=== PATIENT | female | born 1990 | race Caucasian/White ===

== ENCOUNTER 2016-10-27 07:55 | Emergency (ER) | payer OTHER ==
[2016-10-27 08:11] VITALS: BP 80/55
--- NOTE | 2016-10-27 08:53 | UC ---
Shoulder Pain HPI - HPI Summary HPI Summary: The patient comes in today for: 1. Shoulder pain: Onset: One week ago--getting worse. Palliative/provocative: Movement makes it worse. Quality: [place]: Right shoulder. Severity: 610 Time: Constant. Associated symptoms: Previous treatment: She went to an urgent care center in [place], [place] and evaluated there. She had an x-ray there. This study was "nothing wrong." She was told to take ibuprofen. She was taking ibuprofen at 600 mg, 4x/day. She has been doing this for 2 days. She states that she is also taking Percocet (5/ 325) 3xday. 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 * - History of Current Complaint Chief Complaint: UCUpperExtremity Stated Complaint: RIGHT SHOULDER PAIN Time Seen by Provider: 10/27/16 08:43 Hx Obtained From: Patient, Family/Museum Technician Hx Last Menstrual Period: 10/12/16 - Allergies/Home Medications Allergies/Adverse Reactions: Allergies Allergy/AdvReac Type Severity Reaction Status Date / Time No Known Allergies Allergy Verified 10/27/16 08:11 Home Medications: Home Medications oxyCODONE/Acetamin 5/325 MG* [Percocet 5/325 TAB*] 1 tab PO Q4H PRN 10/27/16 [ History Confirmed 10/27/16] PMH/Surg Hx/FS Hx/Imm Hx Previously Healthy: No - Allergies, "Myositosis." Endocrine History: Thyroid Disease Respiratory History: Asthma - Surgical History Surgical History: None Surgery Procedure, Year, and Place: muscle bx right leg about 6 months ago. abscess right breast - Family History Known Family History: Positive: Hypertension Negative: Cardiac Disease - Social History Occupation: Unemployed Alcohol Use: None Substance Use Type: None Smoking Status (MU): Heavy Every Day Tobacco Smoker Type: Cigarettes Amount Used/How Often: 1/2ppd Length of Time of Smoking/Using Tobacco: started at age 14 Have You Smoked in the Last Year: Yes Household Exposure Type: Cigarettes Review of Systems Constitutional: Negative Skin: Negative Eyes: Negative ENT: Negative Respiratory: Negative Cardiovascular: Negative Gastrointestinal: Negative Genitourinary: Negative Musculoskeletal: Arthralgia All Other Systems Reviewed And Are Negative: Yes Physical Exam Triage Information Reviewed: Yes Appearance: Well-Appearing, No Pain Distress - sitting. Vital Signs: Initial Vital Signs Temp 97.6 F 10/27/16 08:00 Pulse 74 10/27/16 08:00 Resp 16 10/27/16 08:00 BP 80/55 10/27/16 08:00 Pulse Ox 97 10/27/16 08:00 Vital Signs Reviewed: Yes Eyes: Positive: Conjunctiva Clear. Negative: Discharge ENT: Positive: Hearing grossly normal. Negative: Pharyngeal erythema, Nasal congestion, Nasal drainage, TM bulging, TM dull, TM red, Tonsillar swelling, Tonsillar exudate Dental: Negative: Gross Decay/Caries @, Dental Fracture @ Neck: Positive: Supple, Nontender, No Lymphadenopathy. Negative: Nuchal Rigidity Respiratory: Positive: Chest non-tender, Lungs clear, No respiratory distress, No accessory muscle use. Negative: Rhonchi, Wheezing Cardiovascular: Positive: RRR, No Murmur Abdomen Description: Positive: Nontender, No Organomegaly, Soft. Negative: Distended, Guarding Musculoskeletal: Positive: Strength Intact, ROM Intact, Other: - Right shoulder : No ecchymosis, no swelling. There is tenderness (slight) to palpation of the coracoid process, and biceps tendon. She had good passive abduction of to 90 degrees. She had marked tenderness to palpation of the musculature of the medial border of the scapula and along the superior border of the scapula. She also had marked tenderness to palpation of the right lateral neck. Neurological: Positive: Alert, Muscle Tone Normal Psychological: Positive: Normal Response To Family, Age Appropriate Behavior Skin: Negative: rashes, breakdown Diagnostics - Radiology No standard instances Xray Interpretation: No Acute Changes Radiology Interpretation Completed By: Radiologist Shoulder Course/Dx - Course Course Of Treatment: Patient told of the negative shoulder x-ray report and her treatment options. At this time, she will be treated with a prednisone burst and muscle relaxant. - Differential Dx/Diagnosis Differential Diagnosis/HQI/PQRI: Sprain, Strain Provider Diagnoses: Right shoulder pain, (muscular). Discharge - Discharge Plan Condition: Stable Disposition: HOME Patient Education Materials: Shoulder Pain (ED) Referrals: Alcides MUNGUIA,Wilmar Wolfe [Primary Care Provider] - 1 Week (Please see your primary care provider in about one to two weeks to see how well you are doing. If you get worse, please be seen sooner.)
--- NOTE | 2016-10-27 09:39 | RAD ---
HISTORY: Right shoulder pain COMPARISONS: None VIEWS: 4, Frontal internal rotation, external rotation, outlet, and axillary views of the right shoulder FINDINGS: BONE DENSITY: Normal. BONES: There is no displaced fracture. JOINTS: There is no arthropathy. ALIGNMENT: There is no dislocation. SOFT TISSUES: Unremarkable. OTHER FINDINGS: None. IMPRESSION: NO ACUTE OSSEOUS INJURY. IF SYMPTOMS PERSIST, RECOMMEND REPEAT IMAGING.
== END 2016-10-27 10:07 | disposition home or self-care (01) ==
LOC: UCCORT 07:55
DX: M25.511 Pain in right shoulder (principal)
CPT/HCPCS: 99212; G0463

== ENCOUNTER 2017-01-19 19:12 | Emergency (ER) | payer OTHER ==
[2017-01-19 19:55] VITALS: BP 89/60
--- NOTE | 2017-01-19 20:26 | UC ---
Complaint Female HPI - HPI Summary HPI Summary: 26 yo female stared her period about 5 days was normal initially] now with marked increase in vaginal bleeding passing clots has used 15 -20 tampons today states her BP is usually 80-90 systolic and this is confirmed by reviewing old charts states she is anemic but has never needed a transfusion states she has some mild dizziness with standing but this is chronic and not worse than normal NO pelvic pain last PAP 1-2 yrs and was normal despite meloxicam allergy states she take ibuprofen without problems - History Of Current Complaint Chief Complaint: UCGeneralIllness Stated Complaint: PERSONAL Time Seen by Provider: 01/19/17 19:36 Hx Obtained From: Patient Hx Last Menstrual Period: 01/11/17 Onset/Duration: Gradual Onset, Lasting Hours Timing: Constant Severity Initially: Moderate Severity Currently: Moderate Pain Intensity: 0 Pain Scale Used: 0-10 Numeric Character: Not Applicable Aggravating Factor(s): Nothing Alleviating Factor(s): Nothing Associated Signs And Symptoms: Positive: Vaginal Bleeding/Discharge - Allergies/Home Medications Allergies/Adverse Reactions: Allergies Allergy/AdvReac Type Severity Reaction Status Date / Time Meloxicam Allergy Severe throat Verified 01/19/17 19:24 swelling PMH/Surg Hx/FS Hx/Imm Hx Previously Healthy: Yes - Surgical History Surgical History: Yes Surgery Procedure, Year, and Place: muscle bx right leg about 6 months ago. abscess right breast - Family History Known Family History: Positive: Hypertension Negative: Cardiac Disease - Social History Alcohol Use: None Substance Use Type: None Smoking Status (MU): Heavy Every Day Tobacco Smoker Type: Cigarettes Amount Used/How Often: 1/2ppd Length of Time of Smoking/Using Tobacco: started at age 14 Have You Smoked in the Last Year: Yes Household Exposure Type: Cigarettes Review of Systems Constitutional: Negative Skin: Negative Eyes: Negative ENT: Negative Respiratory: Negative Cardiovascular: Negative Gastrointestinal: Negative Genitourinary: Negative Motor: Negative Neurovascular: Negative Musculoskeletal: Negative Neurological: Negative Psychological: Negative All Other Systems Reviewed And Are Negative: Yes Physical Exam Triage Information Reviewed: Yes Appearance: Well-Appearing, No Pain Distress, Well-Nourished Vital Signs: Initial Vital Signs Temp 97.8 F 01/19/17 19:17 Pulse 79 01/19/17 19:17 Resp 17 01/19/17 19:17 BP 87/54 01/19/17 19:17 Pulse Ox 99 08/30/17 19:17 Eyes: Positive: Conjunctiva Clear ENT: Positive: Hearing grossly normal, Pharynx normal, TMs normal. Negative: Tonsillar exudate, Trismus, Muffled/hoarse voice Neck: Positive: Supple, Nontender, No Lymphadenopathy Respiratory: Positive: Lungs clear, Normal breath sounds, No respiratory distress Cardiovascular: Positive: RRR, No Murmur, Pulses Normal Abdomen Description: Positive: Nontender, No Organomegaly, Soft, Other: - ext genitalia- no lesions, scant blood in vagina, no cervical lesions notes, non tender uterus and adenexa Musculoskeletal: Positive: ROM Intact, No Edema Neurological: Positive: Alert Psychological Exam: Normal Complaint Female Dx - Differential Dx/Diagnosis Provider Diagnoses: heavy vaginal bleeding of uncertain cause Discharge - Discharge Plan Condition: Stable Disposition: HOME Patient Education Materials: Dysfunctional Uterine Bleeding (ED) Referrals: Alcides MUNGUIA,Wilmar Wolfe [Primary Care Provider] - Additional Instructions: blood work is pending I am unsure of the cause of your bleeding on exam you had on scantly bleeding ...that may change if things worsen go to the ER you should try to get in to see your MD or RETOUCHER in 1-2 days
[2017-01-20 10:24] LABS: Hematocrit 34 % (35-47); Hemoglobin 11.2 g/dl (12.0-16.0); Mean Corpuscular HGB Conc 33 g/dl (31-36); Mean Corpuscular Hemoglobin 28 pg (27-31); Mean Corpuscular Volume 87 fL (80-97); Mean Platelet Volume 8 um3 (7.4-10.4); Red Blood Count 3.96 10^6/ul (4.0-5.4); Red Cell Distribution Width 18 % (10.5-15); White Blood Count 7.5 10^3/ul (3.5-10.8)
--- NOTE | 2017-01-21 09:48 | ED ---
Progress - Progress Note Progress Note: CALL PATIENT CBC (-), INR NORMAL, EMERSON/GARDNERELLA(-). IF WORSE F/U PCP/ER. Course/Dx - Diagnoses Provider Diagnoses: Bleeding
== END 2017-01-19 20:55 | disposition home or self-care (01) ==
LOC: UCCORT 19:12
DX: N92.0 Excessive and frequent menstruation with regular cycle (principal); Z32.02 Encounter for pregnancy test, result negative; Z72.0 Tobacco use
CPT/HCPCS: 36415; 81003; 84702; 85025; 85610; 87480; 87491; 87510; 87591; 87661; 99212; G0463

== ENCOUNTER 2019-04-20 20:57 | Emergency (ER) | payer OTHER ==
[2019-04-20 21:13] VITALS: BP 106/73
[2019-04-20] MEDS ORDERED: Ibuprofen TAB* 600 MG PO ONE (21:25)
--- NOTE | 2019-04-20 21:31 | UC ---
Upper Extremity HPI - HPI Summary HPI Summary: Pt states she had carpal tunnel surgery 04/12/19 and has had pain that goes all the way up the arm, fingers are numb, and something just does not feel right. - History of Current Complaint Chief Complaint: UCUpperExtremity Stated Complaint: LEFT HAND/ARM PAIN AFTER SURGERY Hx Obtained From: Patient Hx Last Menstrual Period: novasure ?: No Onset/Duration: Sudden Onset, Lasting Weeks Severity Initially: Severe Severity Currently: Severe Pain Intensity: 10 Aggravating Factor(s): Movement Associated Signs And Symptoms: Positive: Swelling, Bruising - Allergies/Home Medications Allergies/Adverse Reactions: Allergies Allergy/AdvReac Type Severity Reaction Status Date / Time meloxicam Allergy Severe throat Verified 04/20/19 21:14 swelling tramadol Allergy Severe throat Verified 04/20/19 21:14 swelling Home Medications: Home Medications Budesonide/Formote 80/4.5(NF) [Symbicort 80/4.5 (NF)] 2 inh PO DAILY 04/20/19 [ History Confirmed 04/20/19] PMH/Surg Hx/FS Hx/Imm Hx Previously Healthy: Yes - Surgical History Surgical History: Yes Surgery Procedure, Year, and Place: muscle bx right leg about 6 months ago. abscess right breast. D & C with ablation 01/2018. bilat fallopian tubes 2017. left hand carpal tunnel 04/10 - Family History Known Family History: Positive: Hypertension Negative: Cardiac Disease - Social History Alcohol Use: Rare Substance Use Type: None Smoking Status (MU): Heavy Every Day Tobacco Smoker Type: Cigarettes Amount Used/How Often: 1/2ppd Length of Time of Smoking/Using Tobacco: started at age 14 Have You Smoked in the Last Year: Yes Household Exposure Type: Cigarettes Review of Systems All Other Systems Reviewed And Are Negative: Yes Skin: Positive: Bruising Musculoskeletal: Positive: Arthralgia, Edema, Myalgia Physical Exam Triage Information Reviewed: Yes Appearance: Well-Appearing, Well-Nourished, Pain Distress Vital Signs: Initial Vital Signs Temp 97.8 F 04/20/19 21:07 Pulse 76 04/20/19 21:07 Resp 16 04/20/19 21:07 BP 106/73 04/20/19 21:07 Pulse Ox 100 04/20/19 21:07 Vital Signs Reviewed: Yes Eye Exam: Normal ENT Exam: Normal Dental Exam: Normal Neck exam: Normal Respiratory Exam: Normal Respiratory: Positive: Chest non-tender, Lungs clear, Normal breath sounds Cardiovascular Exam: Normal Cardiovascular: Positive: RRR, No Murmur, Pulses Normal Abdominal Exam: Normal Bowel Sounds: Positive: Present Musculoskeletal: Positive: Strength Limited @ - with waredresser in affected hand, ROM Limited @ - due to swelling and pain, Edema @ - of the left forearm and wrist Neurological Exam: Normal Psychological Exam: Normal Skin: Positive: Other - surgical lac, well adhered and non infected Upper Extremity Course/Dx - Course Course Of Treatment: hx obtained, exam performed ,meds reviewed, treated swelling with sling and pain with Ibuprofen, patient does have allergy to meloxicam, but has taken ibuprofen without complications in the past. - Differential Dx/Diagnosis Differential Diagnosis/HQI/PQRI: Strain, Sprain Provider Diagnosis: Carpal tunnel syndrome of left wrist, Pain at surgical site Discharge ED - Sign-Out/Discharge Documenting (check all that apply): Patient Departure All imaging exams completed and their final reports reviewed: No Studies - Discharge Plan Condition: Stable Disposition: HOME Patient Education Materials: Edema (ED) Referrals: Henrik Prasad PA [Primary Care Provider] - Additional Instructions: 1. use the sling to elevated the hand 2. Use the ibuprofen for the pain 3. Follow up with the surgeon on tuesday if not improving. - Billing Disposition and Condition Condition: STABLE Disposition: Home
== END 2019-04-20 21:39 | disposition home or self-care (01) ==
LOC: UCCORT 20:57
DX: G56.02 Carpal tunnel syndrome, left upper limb (principal); G89.18 Other acute postprocedural pain; M25.532 Pain in left wrist; F17.210 Nicotine dependence, cigarettes, uncomplicated; Z88.5 Allergy status to narcotic agent; Z88.6 Allergy status to analgesic agent
CPT/HCPCS: 99212; A9270-GY; G0463

== ENCOUNTER 2019-04-27 09:19 | Emergency (ER) | payer OTHER ==
[2019-04-27 09:41] VITALS: BP 94/65
--- NOTE | 2019-04-27 10:13 | UC ---
Skin Complaint HPI - HPI Summary HPI Summary: 29 yo female presents with LEFT hand complaint. She tells me that on 04/12 she had carpel tunnel surgery by Dr. Mcmullen at [facility]. She was scheduled for her post-op appointment on 04/24, but pt missed this. She called last night to reschedule and was told she cannot be seen until May. Last night she decided to pull her stitches out on her own. She noticed that the middle of the incision is not "lined up" and appears open. She has pain with palpation and movement of the wrist. Denies fevers, chills, drainage, bleeding, MRSA hx, DM, or streaking. - History of Current Complaint Chief Complaint: UCUpperExtremity Time Seen by Provider: 04/27/19 10:12 Stated Complaint: LEFT HAND COMPLIANT Hx Obtained From: Patient Hx Last Menstrual Period: novasure Onset/Duration: Sudden Onset Onset Severity: Moderate Current Severity: Moderate Pain Intensity: 6 Pain Scale Used: 0-10 Numeric - Allergy/Home Medications Allergies/Adverse Reactions: Allergies Allergy/AdvReac Type Severity Reaction Status Date / Time meloxicam Allergy Severe throat Verified 04/27/19 09:42 swelling tramadol Allergy Severe throat Verified 04/27/19 09:42 swelling PMH/Surg Hx/FS Hx/Imm Hx Endocrine History: Hypothyroidism Respiratory History: Asthma Psychological History: Anxiety, Depression - Surgical History Surgical History: Yes Surgery Procedure, Year, and Place: muscle bx right leg about 6 months ago. abscess right breast. D & C with ablation 01/2018. bilat fallopian tubes 2017. left hand carpal tunnel 04/10 - Family History Known Family History: Positive: Hypertension Negative: Cardiac Disease - Social History Lives: With Family Alcohol Use: None Substance Use Type: None Smoking Status (MU): Heavy Every Day Tobacco Smoker Type: Cigarettes Amount Used/How Often: 1/2ppd Length of Time of Smoking/Using Tobacco: started at age 14 Have You Smoked in the Last Year: Yes Household Exposure Type: Cigarettes Review of Systems All Other Systems Reviewed And Are Negative: No Constitutional: Positive: Negative Skin: Positive: Other - Wound left hand Respiratory: Positive: Negative Cardiovascular: Positive: Negative Neurovascular: Positive: Negative Neurological: Positive: Negative Psychological: Positive: Negative Physical Exam - Summary Physical Exam Summary: GENERAL: NAD. WDWN. No pain distress. SKIN: LEFT HAND: Overlying the volar carpel tunnel there is an approx 5.0cm linear surgical incision with slight surrounding erythema. The midpoint of the incision has a 5mm x 3mm area of wound dehiscence with approx 2-3mm depth appearing to only involve the dermis. No warmth, streaking, drainage. CHEST: No accessory muscle use. Breathing comfortably and in no distress. CV: Pulses intact radial and ulnar. Cap refill <2seconds MSK: LEFT HAND: Pain with flexion and extension at wrist. Pain with gripping. Mild edema at surgical site. NEURO: Alert. Sensations intact hand and all fingers. PSYCH: Age appropriate behavior. Triage Information Reviewed: Yes Vital Signs: Initial Vital Signs Temp 98.6 F 04/27/19 09:33 Pulse 79 04/27/19 09:33 Resp 18 04/27/19 09:33 BP 94/65 04/27/19 09:33 Pulse Ox 96 04/27/19 09:33 Vital Signs Reviewed: Yes Course/Dx - Course Course Of Treatment: I spoke with her surgeon's office in [place] and made her an appointment for Monday 04/30 at 11:00am for a check of her wound. No signs of active infection at this time and she is afebrile, but will place her on keflex prophylactically. Area cleansed with saline and bandaged with telfa and kerlix. Advised to change dressing daily and f/u with surgeon on tuesday. - Diagnoses Provider Diagnosis: Disruption of external operation (surgical) wound Discharge ED - Sign-Out/Discharge Documenting (check all that apply): Patient Departure All imaging exams completed and their final reports reviewed: No Studies - Discharge Plan Condition: Stable Disposition: HOME Prescriptions: Cephalexin CAP* [Keflex CAP*] 500 mg PO TID #21 cap Patient Education Materials: Acute Wound Care (ED) Referrals: Henrik Prasad PA [Primary Care Provider] - Additional Instructions: If you develop a fever, shortness of breath, chest pain, new or worsening symptoms - please call your PCP or go to the ED immediately. Please change the dressing daily and keep clean and dry You have an appointment with your Orthopedic surgeon in [place] at their office on Tuesday04/30/19 at 11:00am - Billing Disposition and Condition Condition: STABLE Disposition: Home - Attestation Statements Provider Attestation: I was available for consult. This patient was seen by the ISABELA. The patient was not presented to, seen by, or examined by me. -Josué
== END 2019-04-27 10:31 | disposition home or self-care (01) ==
LOC: UCCORT 09:19
DX: T81.31XA Disruption of external operation (surgical) wound, not elsewhere classified, initial encounter (principal); J45.909 Unspecified asthma, uncomplicated; F17.210 Nicotine dependence, cigarettes, uncomplicated; Z88.1 Allergy status to other antibiotic agents; Z88.5 Allergy status to narcotic agent; Y83.8 Other surgical procedures as the cause of abnormal reaction of the patient, or of later complication, without mention of misadventure at the time of the procedure; Y92.9 Unspecified place or not applicable
CPT/HCPCS: 99212; G0463